=== PATIENT | female | born 1990 | race Caucasian/White ===

== ENCOUNTER 2020-08-07 11:51 | Emergency (ER) | payer OTHER, SELFPAY ==
[2020-08-07 11:50] VITALS: BP 149/87; PULSE 91; RESP 20; TEMP 36.4; O2SAT 99
--- NOTE | 2020-08-07 12:28 | PC.NURSE ---
Pt states that she wants to leave now because she wants to go home and shower. Pt states that she has an appointment tomorrow for an ultrasound and that her parents want to see it as well. Pt states she doesn't have any bleeding now. This RN took out pts IV and had pt sign AMA paperwork. Pt then comes out to the hallway asking for her snf release paperwork. Pt was told by charge nurse that we would have to find said paperwork. Pt walked out Ambulance by doors. Paperwork that pt was wanting was placed in pts chart
--- NOTE | 2020-08-07 12:46 | ED.GENADULT ---
HPI - General Adult General Chief complaint: Vaginal Bleeding Stated complaint: ABD pain - 15 wks preg Time Seen by Provider: 08/07/20 11:54 Source: patient Mode of arrival: EMS Limitations: no limitations History of Present Illness HPI narrative: Patient is a presents from [facility] with chief complaint of right upper quadrant discomfort and vaginal spotting that began this morning. Patient states that she called for nurse and was discharged from [facility] to come to the emergency department. Patient states she is now does not have any nausea, vomiting, abdominal pain or vaginal bleeding. Patient states she is G 10 P0. Patient cannot recall the name of her [employer] and has not yet seen them for this . She has had no care. States her LMP was in May and she thinks she is 15 weeks . Patient states that she takes a vitamin and iron supplement but denies any other medication usage. Related Data Allergies Allergy/AdvReac Type Severity Reaction Status Date / Time No Known Allergies Allergy Verified 08/07/20 11:59 Review of Systems Review of Systems: Narrative: CONSTITUTIONAL: Denies fever, chills, or sweats. EYES: Denies visual changes, redness, or discharge. ENT: Denies rhinorrhea, congestion, sore throat, or otalgia. CARDIOVASCULAR: Denies chest pain, palpitations, or edema. RESPIRATORY: Denies cough or dyspnea. GASTROINTESTINAL: Reports worsening abdominal pain denies nausea, vomiting, or diarrhea. GENITOURINARY: Reports resolved vaginal spotting denies dysuria or hematuria. SKIN: Denies rash or itching. MUSCULOSKELETAL: Denies back pain, joint pain, or myalgia. NEUROLOGIC: Denies headache, numbness, dizziness, or weakness. PSYCHIATRIC: Denies anxiety or depression. Exam Narrative: Exam Narrative: GENERAL: Disheveled appearance, smells of body odor, well-nourished, and in no acute distress. HEAD: Normocephalic, atraumatic. EYES: PERRLA and EOMI. ENT: Nares clear, no rhinorrhea or epistaxis. Mucous membranes moist. Oropharynx without tonsillar hypertrophy exudate or other lesions. Bilateral TMs pearly hector nonbulging CHEST: Clear to auscultation. No respiratory distress. No wheezes rales or rhonchi HEART: Regular rate and rhythm. No murmur heard. Normal peripheral pulses. ABDOMEN: Soft, nontender, nondistended, normal active bowel sounds. EXTREMITIES: Normal range of motion. No edema. SKIN: Warm, dry, no rash. NEURO: No focal deficits. Alert and oriented x3. PSYCH: Normal mood and affect. Course Vital Signs Vital signs: Vital Signs Temperature 97.6 F 08/07/20 11:50 Pulse Rate 91 08/07/20 11:50 Respiratory Rate 20 08/07/20 11:50 Blood Pressure 149/87 H 08/07/20 11:50 Pulse Oximetry 99 08/07/20 11:50 Temperature 97.6 F 08/07/20 11:50 Pulse Rate 91 08/07/20 11:50 Respiratory Rate 20 08/07/20 11:50 Blood Pressure 149/87 H 08/07/20 11:50 Pulse Oximetry 99 08/07/20 11:50 Medical Decision Making MDM Narrative Medical decision making narrative: Patient states she does not have any symptoms at this time and demands to leave AMA without further workup or evaluation. Patient accepts responsibility for worsened condition or and signed AMA form. Vital Signs Vital Signs: Vital Signs Temperature 97.6 F 08/07/20 11:50 Pulse Rate 91 08/07/20 11:50 Respiratory Rate 20 08/07/20 11:50 Blood Pressure 149/87 H 08/07/20 11:50 Pulse Oximetry 99 08/07/20 11:50 Temperature 97.6 F 08/07/20 11:50 Pulse Rate 91 08/07/20 11:50 Respiratory Rate 20 08/07/20 11:50 Blood Pressure 149/87 H 08/07/20 11:50 Pulse Oximetry 99 08/07/20 11:50 Discharge Plan Discharge Clinical Impression: Abdominal pain, RUQ, Vaginal bleeding during Patient Disposition: Left Against Medical Advice Condition: Stable Follow-up/Referrals: Loni García DO [Primary Care Provider] -
== END 2020-08-07 12:28 | disposition left against medical advice (07) ==
PROVIDERS: Emergency Provider Family Medicine; PCP Family Medicine
DX: O20.9 Hemorrhage in early pregnancy, unspecified (principal); O26.892 Other specified pregnancy related conditions, second trimester; R10.11 Right upper quadrant pain; Z3A.15 15 weeks gestation of pregnancy
CPT/HCPCS: 99281